=== PATIENT | male | born 1980 | race Caucasian/White ===

== ENCOUNTER 2017-07-12 18:49 | Emergency (ER) | payer OTHER ==
[~2017-07-12] VITALS: Ht 172.7 cm; Wt 90.7 kg
--- NOTE | ~2017-07-12 | EKG ---
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1980 Requested By: Jeferson Live Order Number: [id number] MD: Clarke Blanc Measurements Intervals [place] Rate: 78 P: 16 NV: 118 QRS: 7 QRSD: 93 T: 31 QT: 356 QTc: 406 Interpretive Statements Sinus rhythm Borderline short NV interval RSR' in V1 or V2, probably normal variant ST elev, probable normal early repol pattern No previous ECG available for comparison Electronically Signed On 07-12-2017 21:31:48 CDT by Clarke Blanc [email or web address] <ELECTRONICALLY SIGNED> By: Clarke Blanc MD 07/12/172130 30 30 Clarke Blanc MD /HEIKE
[2017-07-12 19:35] LABS: ABSOLUTE NEUTROPHILS 9.5 thou/uL (1.4-8.2); BASOPHILS 0.4 % (0.0-2.0); EOSINOPHILS 0.7 % (0.0-3.0); HEMATOCRIT 47.7 % (42.0-52.0); HEMOGLOBIN 16.8 gm/dL (14.0-18.0); LYMPHOCYTES 11.8 % (24.0-44.0); MCH 30.1 pg (26.0-34.0); MCHC 35.1 g/dL (28.0-37.0); MCV 85.8 fL (80.0-100.0); MONOCYTES 4.1 % (1.0-8.0); PLATELET COUNT 267 thou/uL (150-400); RBC 5.56 mil/uL (4.50-6.00); RDW 13.2 % (10.5-14.5); WBC 11.4 thou/uL (4.0-11.0)
[2017-07-12 19:44] LABS: ANION GAP 6 mmol/L (7-16); BUN 14 mg/dL (7-18); CALCIUM 9.1 mg/dL (8.5-10.1); CHLORIDE 102 mmol/L (98-107); CO2 28 mmol/L (21-32); GLUCOSE 110 mg/dL (74-106); POTASSIUM 4.1 mmol/L (3.5-5.1); SODIUM 136 mmol/L (136-145)
[2017-07-12 19:53] LABS: LIPASE 255 U/L (73-393); TROPONIN-I < 0.04 ng/mL (<0.06)
[2017-07-12] MEDS ORDERED: ZOFRAN ODT4 MG PO (20:25)
[2017-07-12 20:44] VITALS: BP 138/70
== END 2017-07-12 20:45 | disposition home or self-care (01) ==
LOC: ER 18:49
PROVIDERS: Physician Assistant
DX: T67.5XXA Heat exhaustion, unspecified, initial encounter (principal); E86.0 Dehydration; R11.2 Nausea with vomiting, unspecified; F17.210 Nicotine dependence, cigarettes, uncomplicated; X58.XXXA Exposure to other specified factors, initial encounter; Y93.89 Activity, other specified; Y92.89 Other specified places as the place of occurrence of the external cause; Y99.8 Other external cause status